=== PATIENT | female | born 1970 | race Caucasian/White ===

== ENCOUNTER 2017-06-13 01:48 | Emergency (ER) | payer BC ==
[~2017-06-13] VITALS: Ht 162.6 cm; Wt 62.1 kg
[2017-06-13 01:50] VITALS: TEMP 37; Ht 162.6 cm; Wt 62.1 kg
[2017-06-13] MEDS ORDERED: SODIUM CHLORIDE 0.9% 500ML 500 ML IV STA (02:10)
[2017-06-13] MEDS ORDERED: BCPILLS PO (02:14)
[2017-06-13] MEDS ORDERED: OPTIRAY 320 IV PRN (02:30)
[2017-06-13 02:34] LABS: BASO % 0.2 %; BASO ABS # 0.03 K/uL (0-0.2); COMPLETE YES; EOS % 0.5 %; IG% 0.3 %; LYMPH % 16.1 %; LYMPH ABS # 2.37 K/uL (1.2-3.4); MEAN CELL VOLUME 95.6 fL (80-100); MEAN CORPUSCULAR HEMOGLOBIN 32.6 pg (25-34); MEAN CORPUSCULAR HGB CONC 34.1 g/dl (32-36); MEAN PLATELET VOLUME 9.6 fL (7.4-10.4); MONO % 4.3 %; NEUT % 78.6 %; PLATELET COUNT 307 K/uL (130-400); RED BLOOD COUNT 4.29 M/uL (4.2-5.4); WHITE BLOOD COUNT 14.73 K/uL (4.8-10.8)
[2017-06-13 02:51] LABS: BUN/CREATININE RATIO 15.8 (10-20); CALCIUM 8.5 mg/dl (8.5-10.1); CREATININE 0.81 mg/dl (0.60-1.20); POTASSIUM 3.5 mmol/L (3.5-5.1)
--- NOTE | 2017-06-13 03:32 | EMERGENCY ROOM VISIT NOTE ---
History First contact with patient: 01:56 Chief Complaint: GI ASSESSMENT Stated Complaint: RECTAL BLEEDING Nursing Triage Summary: presents with c/o of bloody diarrhea that started around 1900,15 min ago was the last bm,states "no clots in it but it looks a little tissuey" History of Present Illness The patient is a 46 year old female who presents to the Emergency Room with complaints of diarrhea and vomiting. The patient states that her symptoms began approximately 7 hours ago. She had just finished eating dinner with family when she developed the urge to have a bowel movement. She reports that she had multiple episodes of diarrhea. She then developed some rectal bleeding. She states that now, she still has the urgency to have a bowel movement, but there is only blood. She reports some abdominal cramping. She has been nauseous and vomited 3 times. She has been attempting to increase her fluid intake. She states the blood is only a small amount up to a few tablespoons each time she has a bowel movement. She states no other family members are ill. She rates her overall discomfort a 5/10. Review of Systems A complete 10 point review of systems was reviewed with the patient with pertinent positives and negatives as per history of present illness. All else were negative. Social History Smoking Status: Never Smoker Current/Historical Medications Scheduled Control Pills ( Control Pills), 1 TAB PO DAILY Metronidazole (Flagyl), 500 MG PO TID Physical Exam Vital Signs Date Time Temp Pulse Resp B/P (MAP) Pulse Ox O2 Delivery O2 Flow Rate FiO2 06/13/17 04:55 82 16 129/76 98 06/13/17 04:03 79 16 129/76 98 Room Air 06/13/17 01:50 37.0 82 18 112/73 99 Room Air Physical Exam VITALS: Vitals are noted on the nurse's note and reviewed by myself. Vital signs stable. GENERAL: This is a 46-year-old female, in no acute distress, nondiaphoretic, well-developed well-nourished. MOUTH: Mucous membranes slightly dry. NECK: Supple without nuchal rigidity. No lymphadenopathy. HEART: Regular rate and rhythm without murmurs gallops or rubs. LUNGS: Clear to auscultation bilaterally without wheezes, rales or rhonchi. ABDOMEN: Positive bowel sounds x 4. Soft, tenderness to palpation in the suprapubic region and right lower quadrant. No guarding or rebound tenderness. NEURO: Patient was alert and oriented to person place and time. Medical Decision & Procedures ER Provider Diagnostic Interpretation: CT ABDOMEN & PELVIS: Mild periportal edema may be related to fluid resuscitation. Normal appendix. Prominence of the wall of the sigmoid colon and descending colon may be accentuated by underdistention versus colitis. No bowel obstruction. Follicle versus small cyst in the left ovary measuring approximately 2.3 cm. Hepatomegaly versus Mann's lobe configuration. Radiologist: Ana Lilia Justin MD Laboratory Results 06/13/17 02:24 Red Blood Count 4.29, Mean Corpuscular Volume 95.6, Mean Corpuscular Hemoglobin 32.6, Mean Corpuscular Hemoglobin Concent 34.1, Mean Platelet Volume 9.6, Neutrophils (%) (Auto) 78.6, Lymphocytes (%) (Auto) 16.1, Monocytes (%) (Auto) 4.3, Eosinophils (%) (Auto) 0.5, Basophils (%) (Auto) 0.2, Neutrophils # (Auto) 11.58, Lymphocytes # (Auto) 2.37, Monocytes # (Auto) 0.64, Eosinophils # (Auto) 0.07, Basophils # (Auto) 0.03 06/13/17 02:24 Test 06/13/17 02:24 06/13/17 03:45 White Blood Count 14.73 K/uL (4.8-10.8) Red Blood Count 4.29 M/uL (4.2-5.4) Hemoglobin 14.0 g/dL (12.0-16.0) Hematocrit 41.0 % (37-47) Mean Corpuscular Volume 95.6 fL (80-100) Mean Corpuscular Hemoglobin 32.6 pg (25-34) Mean Corpuscular Hemoglobin Concent 34.1 g/dl (32-36) Platelet Count 307 K/uL (130-400) Mean Platelet Volume 9.6 fL (7.4-10.4) Neutrophils (%) (Auto) 78.6 % Lymphocytes (%) (Auto) 16.1 % Monocytes (%) (Auto) 4.3 % Eosinophils (%) (Auto) 0.5 % Basophils (%) (Auto) 0.2 % Neutrophils # (Auto) 11.58 K/uL (1.4-6.5) Lymphocytes # (Auto) 2.37 K/uL (1.2-3.4) Monocytes # (Auto) 0.64 K/uL (0.11-0.59) Eosinophils # (Auto) 0.07 K/uL (0-0.5) Basophils # (Auto) 0.03 K/uL (0-0.2) RDW Standard Deviation 44.0 fL (36.4-46.3) RDW Coefficient of Variation 12.7 % (11.5-14.5) Immature Granulocyte % (Auto) 0.3 % Immature Granulocyte # (Auto) 0.04 K/uL (0.00-0.02) Anion Gap 9.0 mmol/L (3-11) Est Creatinine Clear Calc Drug Dose 75.0 ml/min Estimated GFR () 100.9 Estimated GFR (Non- 87.1 BUN/Creatinine Ratio 15.8 (10-20) Calcium Level 8.5 mg/dl (8.5-10.1) Total Bilirubin 0.4 mg/dl (0.2-1) Aspartate Amino Transf (AST/SGOT) 16 U/L (15-37) Alanine Aminotransferase (ALT/SGPT) 21 U/L (12-78) Alkaline Phosphatase 51 U/L (45-117) Total Protein 7.5 gm/dl (6.4-8.2) Albumin 3.7 gm/dl (3.4-5.0) Globulin 3.8 gm/dl (2.5-4.0) Albumin/Globulin Ratio 1.0 (0.9-2) Lipase 126 U/L (73-393) Urine Color YELLOW Urine Appearance CLEAR (CLEAR) Urine pH 5.0 (4.5-7.5) Urine Specific [place] > 1.045 (1.000-1.030) Urine Protein NEG (NEG) Urine Glucose (UA) NEG (NEG) Urine Ketones TRACE (NEG) Urine Occult Blood NEG (NEG) Urine Nitrite NEG (NEG) Urine Bilirubin NEG (NEG) Urine Urobilinogen NEG (NEG) Urine Leukocyte Esterase NEG (NEG) Urine Test NEG (NEG) Date/Time Source Procedure Growth Status 06/13/17 05:00 Stool C.difficile Toxin B Gene (PCR) - Final No C. difficile toxin B gene detected Complete Medications Administered Medications (Trade) Dose Ordered Sig/Jeniffer Route Start Time Stop Time Status Last Admin Dose Admin Sodium Chloride 500 ml @ 999 mls/hr Q31M STAT IV 06/13/17 02:10 06/13/17 02:40 DC 06/13/17 02:45 999 MLS/HR ED Course The patient was evaluated as above. Labs were drawn and IV access was obtained. Patient was medicated with a 500 mL saline bolus. Abdomen/pelvis CT was performed and read by radiology as above. Patient was reevaluated and findings were discussed. Discharge instructions were reviewed with the patient. The patient verbalized understanding of my assessment and treatment plan and was discharged home in good condition. Medical Decision Differential diagnosis includes gastroenteritis, colitis, cholecystitis, diverticulitis, bowel obstruction, urinary tract infection, ovarian cyst, ovarian torsion, among others. The patient is a 46-year-old female who presents today complaining of lower abdominal pain, diarrhea and vomiting. Labs revealed leukocytosis consistent with infection or vomiting. There were no other concerning laboratory findings. CT scan was performed due to patient's tenderness and showed findings consistent with possible colitis. Stool sample was obtained and stool studies are pending. Patient declined any analgesics or antiemetics. She was informed of all findings. It is unclear whether this is infectious or inflammatory. The patient does not have a history of colitis. She is healthy. She will be given a prescription for Flagyl to start in 24-48 hours if her symptoms do not improve. She was encouraged to return here if she develops any worsening or new/concerning symptoms. The patient's case was reviewed with Dr. Scott, ED attending physician, who agreed with my assessment and treatment plan. Based on the patient's presentation and work up, I feel the patient is stable for outpatient treatment. The patient was educated to return to the emergency department for any worsening of their current condition or new/concerning symptoms. She will follow up with her PCP. Medication Reconcilliation Current Medication List: was personally reviewed by me Blood Pressure Screening Patient's blood pressure: Normal blood pressure Impression Primary Impression: Nausea, vomiting and diarrhea Additional Impression: Lower abdominal pain Departure Information Dispostion Home / Self-Care Condition GOOD Prescriptions Metronidazole (Flagyl) 500 Mg Tab 500 MG PO TID for 10 Days, #30 TAB Prov: Alesia Howard ., AZRA 06/13/17 Referrals RV. Kumar MD (PCP) Patient Instructions [facility] Additional Instructions For pain control, you can use the following [id number] medicines (if >12 yo): - Regular strength (325mg/tab) Tylenol (acetaminophen) 2 tabs every 4-6 hours as needed. Do not exceed 12 tablets in a 24 hour period. Avoid taking more than 4 grams (4000 mg) of Tylenol per day. This includes any other sources of acetaminophen you may take on a regular basis. - Regular strength (200 mg/tab) Advil (ibuprofen) 1-2 tabs every 4-6 hours as needed. Do not exceed a dose of 3200 mg per day. Keep a clear liquid diet for the next 24 hours, then advance to solid foods as tolerated. Start the antibiotic prescription in 24-48 hours if your symptoms have not been improving. Call your primary care provider to schedule a follow-up appointment early next week. Return to the emergency department with any worsening or new/concerning symptoms. Problem Qualifiers
[2017-06-13 03:55] LABS: URINE APPEARANCE CLEAR (CLEAR); URINE BILIRUBIN NEG (NEG); URINE COLOR YELLOW; URINE NITRITE NEG (NEG); URINE SPECIFIC GRAVITY > 1.045 (1.000-1.030); UROBILINOGEN NEG (NEG); ZZUR CULT IF INDIC CLEAN CATCH NO
[2017-06-13 04:02] LABS: MANUAL MICROSCOPIC REQUIRED? NO; REVIEW REQ? NO
[2017-06-13] MEDS ORDERED: METR-163 PO (04:40)
[2017-06-13 04:55] VITALS: BP 129/76; PULSE 82; O2SAT 98
--- NOTE | 2017-06-13 07:22 | DIAGNOSTIC IMAGING REPORT ---
CT SCAN OF THE ABDOMEN AND PELVIS WITH IV CONTRAST CLINICAL HISTORY: Lower abdominal pain. Rectal bleeding. COMPARISON STUDY: No priors. TECHNIQUE: Following the IV administration of 94 cc of Optiray 320, CT scan of the abdomen and pelvis is performed from the lung bases to the proximal femora. Images are reviewed in the axial, sagittal, and coronal planes. IV contrast was administered without complication. A dose lowering technique was utilized adhering to the principles of ALARA. CT DOSE: 264.54 mGy.cm FINDINGS: Lung bases: The heart is normal in size and without pericardial effusion. The lung bases are clear. Liver: The contrast-enhanced liver is enlarged, measuring 20.5 cm in length. The liver is normal in contour and attenuation. There is no intrahepatic biliary ductal dilatation. The hepatic veins and portal veins are patent. Periportal edema is noted. Gallbladder: Unremarkable. Spleen: Normal in size and attenuation. Pancreas: Unremarkable. Adrenal glands: Unremarkable. Kidneys: The contrast enhanced kidneys are normal in size and without hydronephrosis. The kidneys enhance symmetrically. A retroaortic left renal vein is incidentally noted. Abdominal vasculature: The abdominal aorta is normal in course and caliber. Bowel: There is wall thickening and mucosal edema seen involving the left colon, extending from the distal transverse colon to the sigmoid. There is mild pericolonic inflammation the appearance is consistent with a nonspecific colitis. No bowel obstruction is seen. The appendix is well-visualized and normal. Peritoneum: There is no intraperitoneal free air or abdominal ascites. There is a small fat-containing umbilical hernia. Lymphadenopathy: None. Pelvic viscera: The bladder, uterus, and adnexa are normal as visualized. There are bilateral ovarian follicles. A dominant follicle on the left measures up to 2.8 cm. Skeletal structures: No lytic or blastic lesions are seen. IMPRESSION: 1. Findings are consistent with a nonspecific colitis of the left colon, likely on an infectious/inflammatory basis in this age group. 2. Hepatomegaly. Electronically signed by: Rene Pryor M.D. 06/13/2017 7:20 AM Dictated Date/Time: 06/13/2017 7:03 AM
== END 2017-06-13 04:57 | disposition home or self-care (01) ==
LOC: C.EDB 01:48 → C.EDA 04:57
DX: R11.2 Nausea with vomiting, unspecified (principal); R19.7 Diarrhea, unspecified; R10.30 Lower abdominal pain, unspecified; Z79.3 Long term (current) use of hormonal contraceptives

== ENCOUNTER → 2017-11-21 | Outpatient (CLI) | payer BC ==
[~2017-11-21] MED LIST: BCPILLS PO
[2017-11-21 13:34] LABS: BASO % 0.3 %; BASO ABS # 0.02 K/uL (0-0.2); EOS ABS # 0.07 K/uL (0-0.5); LYMPH % 37.5 %; LYMPH ABS # 2.72 K/uL (1.2-3.4); MEAN CELL VOLUME 95.4 fL (80-100); MEAN CORPUSCULAR HEMOGLOBIN 31.8 pg (25-34); MEAN CORPUSCULAR HGB CONC 33.3 g/dl (32-36); MEAN PLATELET VOLUME 10.2 fL (7.4-10.4); MONO % 4.8 %; MONO ABS # 0.35 K/uL (0.11-0.59); NEUT % 56.4 %; PLATELET COUNT 265 K/uL (130-400); RED CELL DISTRIBUTION WIDTH CV 12.9 % (11.5-14.5); RED CELL DISTRIBUTION WIDTH SD 45.2 fL (36.4-46.3); WHITE BLOOD COUNT 7.26 K/uL (4.8-10.8)
[2017-11-21 14:13] LABS: ALBUMIN 3.7 gm/dl (3.4-5.0); ALT/SGPT 22 U/L (12-78); AST/SGOT 17 U/L (15-37); BLOOD UREA NITROGEN 10 mg/dl (7-18); CALCIUM 8.7 mg/dl (8.5-10.1); CARBON DIOXIDE 27 mmol/L (21-32); CHOLESTEROL 197 mg/dl (0-200); CREATININE 0.75 mg/dl (0.60-1.20); GLUCOSE 76 mg/dl (70-99); POTASSIUM 3.7 mmol/L (3.5-5.1); SODIUM 136 mmol/L (136-145)
[2017-11-21 14:31] LABS: ALKALINE PHOSPHATASE 49 U/L (45-117); LDL CHOLESTEROL CALCULATED 94 mg/dl; TOTAL PROTEIN 7.3 gm/dl (6.4-8.2)
== END | disposition home or self-care (01) ==
LOC: C.LAB1850 12:06
PROVIDERS: ATTEND Internal Medicine
DX: Z13.220 Encounter for screening for lipoid disorders (principal); R94.6 Abnormal results of thyroid function studies; Z13.1 Encounter for screening for diabetes mellitus; Z13.0 Encounter for screening for diseases of the blood and blood-forming organs and certain disorders involving the immune mechanism